=== PATIENT | male | born 2000 | race Caucasian/White ===

== ENCOUNTER 2025-04-07 14:06 | Emergency (ER) | payer OTHER, SELFPAY ==
--- OUTSIDE RECORDS SUMMARY | 2025-04-07 14:13 | XMS_ITS | Clinical Summary ---
Author Organization [facility] Address [address] [place] [address] Care Team Providers Care Sales And Marketing Manager Name Role Phone No, Physician Primary Care Provider [phone] Allergies No known active allergies Medications predniSONE (DELTASONE) 20 mg tablet Take 1 tablet (20 mg) by mouth 2 (two) times a day 10 tablet 2 Active cyclobenzaprine (FLEXERIL) 10 mg tablet Take 1 tablet (10 mg total) by mouth 2 (two) times a day as needed for muscle spasms 20 tablet 5 Active albuterol HFA (PROVENTIL HFA,VENTOLIN HFA,PROAIR HFA) 90 mcg/actuation inhaler Inhale 2 puffs every 4 (four) hours as needed for wheezing 18 g 5 01/06/20 26 Active albuterol HFA (PROVENTIL HFA,VENTOLIN HFA,PROAIR HFA) 90 mcg/actuation inhalerIndicati ons:Acute Asthma Attack Inhale 2 puffs every 4 (four) hours as needed for shortness of breath 6.7 g 5 Active fluticasone propion-salmete roL (ADVAIR DISKUS) 250-50 mcg/dose diskus inhaler Inhale 1 puff 2 (two) times a day Rinse mouth with water after use. Do not swallow. 1 each 5 Active Encounters Date Type Department Care Team Description 02/22/2025 1:44 PM CDT - 02/22/2025 2:02 PM CDT Emergency [facility] Emergency Department [address] [place] [address] Encounter for medication refill (Primary Dx) Discharge Disposition: Discharge to home or self care from Last 3 Months Medical History Medical History Date Comments Asthma Social History Tobacco Use Types Packs/Day Years Used Date Smoking Tobacco: Former Personal Safety Answer Date Recorded Have you ever been in or are you currently in a harmful physical or emotional relationship or is someone making you feel afraid or unsafe? 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 Gender Identity Not on file Sexual Orientation Not on file Obstetrics History Last Filed Vital Signs Vital Sign Reading Time Taken Comments Blood Pressure 115/67 02/22/2025 1:55 PM CDT Pulse 65 02/22/2025 1:55 PM CDT Temperature 36.4 C (97.6 F) 02/22/2025 12:52 PM CDT Respiratory Rate 19 02/22/2025 12:52 PM CDT Oxygen Saturation 97% 02/22/2025 1:55 PM CDT Inhaled Oxygen Concentration - - Weight 118 kg (260 lb 2.3 oz) 02/22/2025 12:52 P M CDT Height 190.5 cm (6' 3) 02/22/2025 12:52 PM CDT Body Mass Index 32.52 02/22/2025 12:52 PM CDT Plan of Treatment Health Maintenance Due Date Last Done Comments Depression Screening 2000 Hepatitis C Screening 2000 DTaP/Tdap/Td Vaccine (1 - Tdap) 2011 Varicella Vaccines (1 of 2 - 13+ 2-dose series) 2013 HPV Vaccines (1 - Male 3-dos e series) 2015 Hepatitis B Screening 2018 Regular Well Visit/Exam 18-64 2018 Influenza Vaccine (Season Ended) 2025 Pneumococcal vaccine <65 Aged Out No longer eligible based on patient's age to complete this topic Insurance [facility] [employer] Care Teams Sales And Marketing Manager Relationship Specialty Start Date End Date No, Physician PCP - General 12/07/24
--- OUTSIDE RECORDS SUMMARY | 2025-04-07 14:13 | XMS_ITS | Clinical Summary ---
Author Organization [facility] Address Formerly [facility] [place] [address] Care Team Providers Care Station Worker Name Role Phone None, Provider MD Primary Care Provider Unavaila ble Allergies No known active allergies Medications albuterol sulfate HFA 108 (90 Base) MCG/ACT inhaler INHALE 2 PUFFS BY MOUTH EVERY 4 HOURS NEEDED FOR WHEEZE 02/14/2022 Active Family History Medical History Relation Comments No Known Problems Father No Known Problems Mother Relation Status Comments Father Alive Mother Alive Social History Tobacco Use Types Packs/Day Years Used Date Smoking Tobacco: Former Smokeless Tobacco: Never Alcohol Use Standard Drinks/Week Comments Not Currently 0 (1 standard drink = 0.6 oz pur e alcohol) Sex and Gender Information Value Date Recorded Sex Assigned at Not on file Legal Sex Male 4:45 PM CDT Gender Identity Not on file Sexual Orientation Not on file Last Filed Vital Signs Vital Sign Reading Time Taken Comments Blood Pressure 126/78 02/26/2022 3:24 PM CDT Pulse 83 02/26/2022 3:24 PM CDT Temperature 36.4 C (97.5 F) 02/26/2022 3:24 PM CDT Respiratory Rate 16 02/26/2022 3:24 PM CDT Oxygen Saturation 95% 02/26/2022 3:24 PM CDT Inhaled Oxygen Concentration - - Weight 124.7 kg (275 lb) 02/26/2022 3:24 PM CDT Height 190.5 cm (6' 3) 02/26/2022 3:24 PM CDT Body Mass Index 34.37 02/26/2022 3:24 PM CDT Plan of Treatment Health Maintenance Due Date Last Done Comments Annual Physical 2003 HPV Vaccines (1 - Male 3-dos e series) 2015 Hepatitis C 2018 DTaP, Tdap and Td Vaccines ( 4 - Tdap) 2019 09/13/2001, 2000, 2000 COVID-19 Vaccine (1 - 2023-2 5 season) 2024 Hepatitis B Vaccines Completed 04/30/2001, 2000, 2000 Pneumococcal Vaccine: Pediatrics (0 to 5 Years) and At-Risk Patients (6 to 49 Years) Aged Out 04/30/2001, 2000, 2000 No longer eligible based on patient's age to complete this topic Meningococcal B Vaccine Aged Out No l onger eligible based on patient's age to complete this topic Meningococcal Vaccine Aged Out No kurt doris eligible based on patient's age to complete this topic RSV Immunizations Under 20 Months Aged Out No longer eligible b ased on patient's age to complete this topic Insurance [facility] Care Teams Station Worker Relationship Specialty Start Date End Date None, Provider, PCP - General 02/26/22
--- OUTSIDE RECORDS SUMMARY | 2025-04-07 14:13 | XMS_ITS | Clinical Summary ---
Author Organization [facility] Address [address] [place] [address] Care Team Providers Care Mortgage Advisor Name Role Phone Unavailable Primary Care Provider Unavailabl e Source Comments [facility],non-owned Affiliates and Associated Physician Practices is amultiple site organization consisting of ambulatory clinics and hospital sitesin [place], [place], [place] and [place]. This disclosure is being madepursuant to the Care Everywhere program and may not contain all information available regarding this patient. Last updated 18.[facility] Active Problems Problem Noted Date Diagnosed Date History of asthma 02/22/2025 Morbid obesity due to excess calories 02/02/2023 BMI 40.0-44.9, adult 02/02/2023 Encounters Date Type Department Care Team Description 04/02/2025 Telephone [facility] - Family Medicine [address] [facility], [address] [address] Lauren Michel, [employer] Appointment from Last 3 Months Immunizations Immunization Administration Dates Next Due DTaP VACCINE IM (6wk-6yrs) 09/13/2001,2000 ,2000 HEP B VACCINE, PED/ADOL 04/30/2001,2000, HIB VACCINE 09/13/2001,2000,2000 MMR VACCINE 12/13/2001 PNEUMOCOCCAL PCV7 CONJ, PEDS 04/30/2001,12/20/19,2000 POLIO IPV 09/13/2001,2000 VARICELLA 12/13/2001 Social History Tobacco Use Types Packs/Day Years Used Date Smoking Tobacco: Never Assessed Sex and Gender Information Value Date Recorded Sex Assigned at Not on file Legal Sex Male 11:59 AM CDT Gender Identity Not on file Sexual Orientation Not on file Plan of Treatment Upcoming Encounters Date Type Department Care Team (Late st Contact Info) Description 04/24/2025 3:00 PM CDT Office Visit [facility] - Family Medicine [address], [address] [address] Lacey Mandel MD [address] [place] [address] Health Maintenance Due Date Last Done Comments PNEUMOCOCCAL VACCINE (1 of 1 - PPSV23, PCV20, or PCV21) 2006 04/30/2001, 2000, 2000 HIV SCREENING 2015 HPV VACCINE (1 - Male 3-dose series) 2015 HEPATITIS C SCREENING 05/12/2018 DTAP/TDAP/TD VACCINES (4 - Tdap) 2019 09/13/2001, 2000, 2000 COVID-19 VACCINE (1 - 2023-2 5 season) 2024 DEPRESSION SCREENING 10/02/2024 INFLUENZA VACCINE (#1) 2025 ZOSTER VACCINE (1 of 2) 2050 HEPATITIS B VACCINE Completed 04/30/2001, 2000, 2000 HIB VACCINE Completed 09/13/2001, 2000, 2000 MENINGOCOCCAL (Group B) VACCINE SHARED DECISION-MAKING Aged Out No longer eligible based on patient's age to complete this topic MENINGOCOCCAL GROUPS A/C/Y/W VACCINE Aged Out No longer eligible b ased on patient's age to complete this topic
--- OUTSIDE RECORDS SUMMARY | 2025-04-07 14:14 | XMS_ITS | Referral Summary ---
Author Organization [facility] Address [address] [place] [address] Care Team Providers Care Warp Picker Name Role Phone No, Physician Primary Care Provider [phone] Encounters Date Type Department Care Team Description 02/22/2025 1:44 PM CDT - 02/22/2025 2:[address] [facility] Emergency Department [address] [place] [address] Encounter for medication refill (Primary Dx) Discharge Disposition: Discharge to home or self care from Last 3 Months Allergies No known active allergies Medications predniSONE [...] after use. Do not swallow. 1 each Active Social History Tobacco Use Types Packs/Day Years Used Date Smoking Tobacco: Former Personal Safety Answer Date Recorded Have you ever been in or are you currently in a harmful physical or emotional relationship or is someone making you feel afraid or unsafe? 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
[2025-04-07 14:15] VITALS: BP 136/69; PULSE 73; RESP 18; TEMP 36.1; O2SAT 98
--- NOTE | 2025-04-07 14:28 | ED_ITS ---
HPI - General Adult General Chief complaint: Unspecified Stated complaint: Asthma History of Present Illness HPI narrative: Juan Payne is a 24 y/o male who presents today for a medication refill. He states that he has a PMhx of asthma and has been out of his daily and PRN inhalers for about 5 days. States he started to feel his asthma come on slightly today but states he just needs a refill and that will help. Related Data Home Medications ?Medication ?Instructions ?Recorded ?Confirmed ?Last Taken ?Type albuterol sulfate 90 mcg/actuation inhalation 04/07/25 Unknown History aerosol inhaler fluticasone 250 mcg-salmeterol 50 inhalation 04/07/25 Unknown History mcg/dose blistr powdr for inhalation (Wixela Inhub) Allergies Allergy/AdvReac Type Severity Reaction Status Date / Time No Known Allergies Allergy Verified 04/07/25 14:20 Review of Systems Review of Systems: All systems reviewed & are unremarkable except as noted in HPI and below Exam Narrative: GENERAL: Well-appearing, well-nourished, and in no acute distress. HEAD: Normocephalic, atraumatic. EYES: PERRLA and EOMI. ENT: Nares clear, no rhinorrhea or epistaxis. Mucous membranes moist. Oropharynx without tonsillar hypertrophy exudate or other lesions. NECK: Supple. No adenopathy or masses. No carotid bruits or JVD CHEST: No respiratory distress. Mild bilateral wheeze heard in his lungs posteriorly HEART: Regular rate and rhythm. No murmur heard. Normal peripheral pulses. SKIN: Warm, dry, no rash. NEURO: No focal deficits. Alert and oriented x3. PSYCH: Normal mood and affect. Course Course Level of Care: Express Care Visit Vital Signs Vital signs: Vital Signs Temperature 36.1 C L 04/07/25 14:15 Pulse Rate 73 04/07/25 14:15 Respiratory Rate 18 04/07/25 14:15 Blood Pressure 136/69 04/07/25 14:15 Pulse Oximetry 98 04/07/25 14:15 Oxygen Delivery Room Air 04/07/25 14:15 Temperature 36.1 C L 04/07/25 14:15 Pulse Rate 73 04/07/25 14:15 Respiratory Rate 18 04/07/25 14:15 Blood Pressure 136/69 04/07/25 14:15 Pulse Oximetry 98 04/07/25 14:15 Oxygen Delivery Room Air 04/07/25 14:15 Medical Decision Making MDM Narrative Medical decision making narrative: 24 y/o here for medication refill. Patient is stable without any acute complaints. Reviewed the records and essential medications were prescribed for the patient. Pulse oximetry interpretation: Not hypoxic Patient noted to have some mild wheezing, offered a duo neb to help, which he declines and states that he just needs his inhalers refilled and he will feel better. Encouraged to return if he changes his mind or develops any worsening symptoms. DISPOSITION: Discharged home in stable condition. Medical Records Medical records reviewed: Yes I reviewed the external patient's medical records. Vital Signs Vital Signs: Vital Signs Temperature 36.1 C L 04/07/25 14:15 Pulse Rate 73 04/07/25 14:15 Respiratory Rate 18 04/07/25 14:15 Blood Pressure 136/69 04/07/25 14:15 Pulse Oximetry 98 04/07/25 14:15 Oxygen Delivery Room Air 04/07/25 14:15 Temperature 36.1 C L 04/07/25 14:15 Pulse Rate 73 04/07/25 14:15 Respiratory Rate 18 04/07/25 14:15 Blood Pressure 136/69 04/07/25 14:15 Pulse Oximetry 98 04/07/25 14:15 Oxygen Delivery Room Air 04/07/25 14:15 Vitals reviewed by me Discharge Plan Discharge Clinical Impression: Medication refill Patient Disposition: Home Condition: Stable Instructions: Antibiotic Form Additional Instructions: continue to use your inhalers as ordered Establish care with a PCP as discussed If you develop any worsening symptoms or have any further concerns, return or seek emergency care. Patient Language: Luxembourgish Prescriptions: New fluticasone propion-salmeterol [Wixela Inhub] 250-50 mcg/dose blister with device 1 inh inhalation Q12H Qty: 60 1RF albuterol sulfate [Ventolin HFA] 90 mcg/actuation HFA aerosol inhaler 2 puff inhalation QID PRN (Reason: shortness of breath or wheezing) Qty: 8.5 1RF No Action fluticasone propion-salmeterol [Wixela Inhub] 250-50 mcg/dose blister with device INHALATION Patient Comments: LAST DOSE LAST MONDAY OUT OF INHALER. albuterol sulfate 90 mcg/actuation HFA aerosol inhaler INHALATION Patient Comments: LAST DOSE MONDAY OF LAST WEEK OUT OF INHALER. Follow-up/Referrals: PHYSICIAN,NATIONAL SALES DIRECTOR [Primary Care Provider] - Time of Disposition: 14:37
== END 2025-04-07 14:25 | disposition home or self-care (01) ==
PROVIDERS: Emergency Provider Nurse Practitioner Family
DX: J45.909 Unspecified asthma, uncomplicated (principal); Z76.0 Encounter for issue of repeat prescription
CPT/HCPCS: 99202; G0463